=== PATIENT | male | born 1965 | race American Indian/Alaskan Native ===

== ENCOUNTER 2017-08-13 02:28 | Observation (INO) | payer MEDICAID, OTHER ==
[2017-08-13] MEDS ORDERED: Metoprolol 1 mg/ml Inj IVP STA ×3 (02:44→03:00)
--- NOTE | 2017-08-13 02:53 | ED PDOC ---
HPI: Chest Pain Time Seen by Provider: 08/13/17 02:30 Chief Complaint (Nursing): Palpitations Chief Complaint (Provider): Palpitations History Per: Patient History/Exam Limitations: no limitations Onset/Duration Of Symptoms: Sudden Onset Current Symptoms Are (Timing): Still Present Severity: Mild Quality: Other Additional Complaint(s): 52 year old male with medical history for HTN, HCL and DM, presents to the emergency department with sudden onset of palpations while at work prior to arrival. He denies any fever, chills, cough or chest pain. Patient reports feeling well prior to tonight. PMD: David Padilla MD Past Medical History Reviewed: Historical Data, Nursing Documentation, Vital Signs Vital Signs: Last Vital Signs Temp 98.8 F 08/13/17 16:34 Pulse 93 H 08/13/17 16:34 Resp 18 08/13/17 16:34 BP 117/73 08/13/17 16:34 Pulse Ox 95 08/13/17 16:34 - Medical History PMH: Anxiety, Cardia Arrhythmia, Depression, Diabetes, HTN Denies: HIV, Chronic Kidney Disease Comment Only: Cardiac Aneurysm (SVT) - Surgical History Surgical History: No Surg Hx - Family History Family History: States: Unknown Family Hx - Social History Ex-Smoker (has not smoked in the last 12 months): Yes Alcohol: None Drugs: Denies - Home Medications Home Medications: Ambulatory Orders Medication Instructions Recorded Clonazepam [Klonopin] 0.5 mg PO TID 09/11/15 Lamotrigine [Lamictal] 25 mg PO HS 09/11/15 Lisinopril/Hydrochlorothiazide 1 tab PO DAILY 09/11/15 [Lisinopril-Hctz 20-25 mg Tab] Sertraline HCl 100 mg PO DAILY 09/11/15 Simvastatin [Zocor] 40 mg PO HS 09/11/15 Sitagliptin Phos/Metformin HCl 1 each PO BID 09/11/15 [Janumet 50-1,000 mg Tablet] Aspirin [Aspirin Chewable] 81 mg PO DAILY #0 chew 09/12/15 Metoprolol Tartrate [Lopressor] 50 mg PO DAILY 08/13/17 - Allergies Allergies/Adverse Reactions: Allergies Allergy/AdvReac Type Severity Reaction Status Date / Time No Known Allergies Allergy Verified 09/11/15 20:18 KAROLINA Risk Score for UA/NSTEMI - KAROLINA Risk Score Age > 64: NO 3 or more CAD Risk Factors: NO Known CAD (Stenosis greater than 50%): NO Aspirin use in past 7 days: NO Severe Angina: NO EKG ST changes greater than 0.5mm: NO Positive Cardiac Marker: NO [place] Score: 0 Risk %: 5% Review of Systems ROS Statement: Except As Marked, All Systems Reviewed And Found Negative Constitutional: Negative for: Fever, Chills, Sweats Respiratory: Positive for: SOB with Exertion, Pleuritic Pain Physical Exam - Reviewed Nursing Documentation Reviewed: Yes Vital Signs Reviewed: Yes - Physical Exam Appears: Positive for: Non-toxic, Uncomfortable Head Exam: Positive for: ATRAUMATIC, NORMAL INSPECTION, NORMOCEPHALIC Skin: Positive for: Normal Color Eye Exam: Positive for: Normal appearance Neck: Positive for: Normal Cardiovascular/Chest: Positive for: Chest Non Tender, Tachycardia Respiratory: Positive for: Normal Breath Sounds. Negative for: Wheezing, Respiratory Distress Gastrointestinal/Abdominal: Positive for: Normal Exam, Soft. Negative for: Tenderness Extremity: Positive for: Normal ROM (upper/lower). Negative for: Pedal Edema ( bilateral) Neurologic/Psych: Positive for: Alert, Oriented. Negative for: Motor/Sensory Deficits - Laboratory Results Result Diagrams: 08/13/17 10:30 08/13/17 10:30 - ECG O2 Sat by Pulse Oximetry: 98 (RA) Pulse Ox Interpretation: Normal Medical Decision Making Medical Decision Making: Initial Impression: Palpitations rule out aberrant rythm, rule out ischemia, rule out infection Initial Plan: * CMP * Troponin I * CBC * CXR * Accucheck * Lopressor 5mg IVP Time: 0230 --EKG: SVT at 200 BMP. --Adenosine 6mg IV ordered. Brief period of AFib noted. Time: 0246 --Accucheck: 337. --once the rate slowed down, Patient is noted to have no p waves on ekg, appears to be consistent with atrial fibrillation. pt states he was once told he had an svt. i ordered cardizem however is backordered. therefore will give lopressor. Time: 413 --Labs: low potassium noted. --Patient will be admitted to Dr. Mathew for SVT and hyperglycemia. --Jc Hill APN (covering for Dr. Mathew) made aware of case. pt agreeable stay in hospital for observation on manager cardiac cath. Scribe Attestation: Documented by Cynthia Garcia, acting as a scribe for Darcy Howe MD. Provider Scribe Attestation: All medical record entries made by the Scribe were at my direction and personally dictated by me. I have reviewed the chart and agree that the record accurately reflects my personal performance of the history, physical exam, medical decision making, and the department course for this patient. I have also personally directed, reviewed, and agree with the discharge instructions and disposition. Disposition - Clinical Impression Clinical Impression: Rapid palpitations, SVT (supraventricular tachycardia) - Patient ED Disposition Is Patient to be Admitted: Yes Counseled Patient/Family Regarding: Studies Performed, Diagnosis - Disposition Disposition Time: 04:00 Condition: STABLE
[2017-08-13] MEDS ORDERED: Metoprolol 1 mg/ml Inj IVP ONE (02:55)
[2017-08-13 03:24] LABS: BASO % 0.4 % (0.0-2.0); EOS # 0.2 K/uL (0.0-0.7); EOS % 1.9 % (0.0-4.0); HEMOGLOBIN 16.1 g/dL (12.0-18.0); LYMPH # 2.7 K/uL (1.0-4.3); LYMPH % 28.3 % (20.0-40.0); MEAN CELL VOLUME 86.3 fl (80.0-94.0); MEAN CORPUSCULAR HEMOGLOBIN 29.4 pg (27.0-31.0); MEAN CORPUSCULAR HGB CONC 34.1 g/dL (33.0-37.0); MEAN PLATELET VOLUME 9.5 fl (7.2-11.7); MONO # 1.1 K/uL (0.0-0.8); MONO % 11.1 % (0.0-10.0); NEUT # 5.7 K/uL (1.8-7.0); NEUT % 58.3 % (50.0-75.0); NRBC % 0.1 % (0.0-0.0); RBC 5.48 Mil/uL (4.40-5.90); RED CELL DISTRIBUTION WIDTH 13.7 % (11.5-14.5); WHITE BLOOD COUNT 9.7 K/uL (4.8-10.8)
[2017-08-13 03:47] LABS: ALB/GLOB RATIO 1.1 (1.0-2.1); ALBUMIN 4.2 g/dL (3.5-5.0); ALT/SGPT 36 U/L (21-72); AST/SGOT 28 U/L (17-59); BLOOD UREA NITROGEN 17 mg/dl (9-20); CALCIUM 9.8 mg/dL (8.4-10.2); GFR AFRICAN-AMERICAN > 60; GFR NON-AFRICAN AMERICAN > 60
[2017-08-13] MEDS ORDERED: Insulin Regular 100 units/ml SC STA (03:48)
[2017-08-13] MEDS ORDERED: Potassium Chloride 20 mEq ER Tab PO ONE ×2 (04:14→04:51)
[2017-08-13] MEDS ORDERED: Insulin Regular 100 units/ml ONE (04:50)
--- NOTE | 2017-08-13 08:22 | CP.PCM.HP ---
History of Present Illness - History of Present Illness History of Present Illness: pt admitted for palpitations/svt. broke w/ meds in er. at presnt w/o cp, f/c, n /v/d.no palpitations. bw noted Present on Admission - Present on Admission Any Indicators Present on Admission: No Review of Systems - Cardiovascular Cardiovascular: As Per HPI, Palpitations, Rapid Heart Rate Past Patient History - Past Medical History & Family History Past Medical History?: Yes - Past Social History Smoking Status: Never Smoked - CARDIAC Hx Cardiac Disorders: Yes - PULMONARY Hx Respiratory Disorders: No - NEUROLOGICAL Hx Neurological Disorder: No - HEENT Hx HEENT Problems: No - RENAL Hx Chronic Kidney Disease: No - ENDOCRINE/METABOLIC Hx Endocrine Disorders: Yes - HEMATOLOGICAL/ONCOLOGICAL Hx Human Immunodeficiency Virus (HIV): No - INTEGUMENTARY Hx Dermatological Problems: No - MUSCULOSKELETAL/RHEUMATOLOGICAL Hx Musculoskeletal Disorders: No Hx Falls: No - GASTROINTESTINAL Hx Gastrointestinal Disorders: No - GENITOURINARY/GYNECOLOGICAL Hx Genitourinary Disorders: No - PSYCHIATRIC Hx Psychophysiologic Disorder: Yes - SURGICAL HISTORY Hx Surgeries: No - ANESTHESIA Hx Anesthesia: No Hx Anesthesia Reactions: No Hx Malignant Hyperthermia: No Meds Allergies/Adverse Reactions: Allergies Allergy/AdvReac Type Severity Reaction Status Date / Time No Known Allergies Allergy Verified 09/11/15 20:18 Physical Exam - Constitutional Appears: Well, Non-toxic, No Acute Distress - Head Exam Head Exam: ATRAUMATIC, NORMAL INSPECTION, NORMOCEPHALIC - Eye Exam Eye Exam: EOMI, Normal appearance, PERRL Pupil Exam: NORMAL ACCOMODATION, PERRL - ENT Exam ENT Exam: Mucous Membranes Moist, Normal Exam - Neck Exam Neck exam: Positive for: Normal Inspection - Respiratory Exam Respiratory Exam: Clear to Auscultation Bilateral, NORMAL BREATHING PATTERN - Cardiovascular Exam Cardiovascular Exam: REGULAR RHYTHM, RRR, +S1, +S2 - GI/Abdominal Exam GI & Abdominal Exam: Normal Bowel Sounds, Soft. absent: Tenderness - Extremities Exam Extremities exam: Positive for: full ROM, normal capillary refill, normal inspection, pedal pulses present - Back Exam Back exam: NORMAL INSPECTION - Neurological Exam Neurological exam: Alert, CN II-XII Intact, Normal Gait, Oriented x3, Reflexes Normal - Psychiatric Exam Psychiatric exam: Normal Affect, Normal Mood - Skin Skin Exam: Dry, Intact, Normal Color, Warm Results - Vital Signs Recent Vital Signs: Last Vital Signs Temp 98.7 F 08/13/17 06:49 Pulse 104 H 08/13/17 06:49 Resp 18 08/13/17 06:49 BP 141/83 08/13/17 06:49 Pulse Ox 97 08/13/17 06:49 - Labs Result Diagrams: 08/13/17 03:00 08/13/17 03:00 Labs: Laboratory Results - last 24 hr 08/13/17 08/13/17 08/13/17 02:37 03:00 03:00 WBC 9.7 RBC 5.48 Hgb 16.1 Hct 47.3 MCV 86.3 MCH 29.4 MCHC 34.1 RDW 13.7 Plt Count 256 MPV 9.5 Neut % (Auto) 58.3 Lymph % (Auto) 28.3 [place] % (Auto) 11.1 H Eos % (Auto) 1.9 Baso % (Auto) 0.4 Neut # (Auto) 5.7 Lymph # (Auto) 2.7 [place] # (Auto) 1.1 H Eos # (Auto) 0.2 Baso # (Auto) 0.0 Sodium 136 Potassium 3.0 L Chloride 97 L Carbon Dioxide 24 Anion Gap 18 BUN 17 Creatinine 1.0 Est GFR ( Amer) > 60 Est GFR (Non-Af Amer) > 60 POC Glucose (mg/dL) 337 H Random Glucose 344 H Calcium 9.8 Total Bilirubin 0.7 AST 28 ALT 36 Alkaline Phosphatase 147 H Troponin I < 0.0120 Total Protein 8.1 Albumin 4.2 Globulin 3.8 Albumin/Globulin Ratio 1.1 08/13/17 05:37 WBC RBC Hgb Hct MCV MCH MCHC RDW Plt Count MPV Neut % (Auto) Lymph % (Auto) [place] % (Auto) Eos % (Auto) Baso % (Auto) Neut # (Auto) Lymph # (Auto) [place] # (Auto) Eos # (Auto) Baso # (Auto) Sodium Potassium Chloride Carbon Dioxide Anion Gap BUN Creatinine Est GFR ( Amer) Est GFR (Non-Af Amer) POC Glucose (mg/dL) 294 H Random Glucose Calcium Total Bilirubin AST ALT Alkaline Phosphatase Troponin I Total Protein Albumin Globulin Albumin/Globulin Ratio Assessment & Plan (1) DVT prophylaxis Assessment and Plan: scd nad ae hose ambulation Status: Acute (2) HTN (hypertension) Assessment and Plan: cont home meds Status: Acute (3) Palpitations Assessment and Plan: cardio echo asa cont home meds Status: Acute (4) SVT (supraventricular tachycardia) Assessment and Plan: cardio echo cont home meds Status: Acute (5) Type 2 diabetes mellitus with hyperglycemia Assessment and Plan: riss, home meds, diet control fsbg Status: Acute Decision To Admit - Pt Status Changed To: Hospital Disposition Of: Observation - . Bed Request Type: Telemetry Admitting Physician: Harry Mathew
--- NOTE | 2017-08-13 08:45 | RAD ---
HISTORY: chest pain COMPARISON: Chest radiograph 12/04/2015. FINDINGS: LUNGS: No active pulmonary disease. PLEURA: No significant pleural effusion identified, no pneumothorax apparent. CARDIOVASCULAR: Normal. OSSEOUS STRUCTURES: No significant abnormalities. VISUALIZED UPPER ABDOMEN: Normal. OTHER FINDINGS: None. IMPRESSION: No interval acute cardiopulmonary disease appreciated.
[2017-08-13 11:05] LABS: BASO % 0.5 % (0.0-2.0); EOS # 0.1 K/uL (0.0-0.7); EOS % 1.2 % (0.0-4.0); HEMOGLOBIN 15.4 g/dL (12.0-18.0); LYMPH # 1.3 K/uL (1.0-4.3); LYMPH % 19.4 % (20.0-40.0); MEAN CELL VOLUME 86.8 fl (80.0-94.0); MEAN CORPUSCULAR HEMOGLOBIN 28.9 pg (27.0-31.0); MEAN CORPUSCULAR HGB CONC 33.3 g/dL (33.0-37.0); MEAN PLATELET VOLUME 9.5 fl (7.2-11.7); MONO # 0.6 K/uL (0.0-0.8); MONO % 9.5 % (0.0-10.0); NEUT # 4.7 K/uL (1.8-7.0); NEUT % 69.4 % (50.0-75.0); NRBC % 0.1 % (0.0-0.0); RBC 5.32 Mil/uL (4.40-5.90); RED CELL DISTRIBUTION WIDTH 13.6 % (11.5-14.5); WHITE BLOOD COUNT 6.7 K/uL (4.8-10.8)
[2017-08-13] MEDS: Insulin Regular 100 units/ml SC SCH ×2 (11:09→16:42)
[2017-08-13 11:20] LABS: ALB/GLOB RATIO 1.1 (1.0-2.1); ALT/SGPT 45 U/L (21-72); AST/SGOT 23 U/L (17-59); BLOOD UREA NITROGEN 14 mg/dl (9-20); CALCIUM 9.4 mg/dL (8.4-10.2); GFR AFRICAN-AMERICAN > 60; GFR NON-AFRICAN AMERICAN > 60
[2017-08-13 16:27] VITALS: BP 117/73; PULSE 93; RESP 18; TEMP 98.8
--- NOTE | 2017-08-13 18:36 | CP.PCM.DIS ---
Provider - Provider Date of Admission: 08/13/17 04:15 Attending physician: Harry Mathew MD Primary care physician: David Padilla Time Spent in preparation of Discharge (in minutes): 15 Diagnosis - Discharge Diagnosis (1) DVT prophylaxis Status: Acute (2) HTN (hypertension) Status: Acute (3) Palpitations Status: Acute (4) SVT (supraventricular tachycardia) Status: Acute (5) Type 2 diabetes mellitus with hyperglycemia Status: Acute Hospital Course - Lab Results Lab Results: Most Recent Lab Values WBC 6.7 K/uL (4.8-10.8) 08/13/17 10:30 RBC 5.32 Mil/uL (4.40-5.90) 08/13/17 10:30 Hgb 15.4 g/dL (12.0-18.0) 08/13/17 10:30 Hct 46.2 % (35.0-51.0) 08/13/17 10:30 MCV 86.8 fl (80.0-94.0) 08/13/17 10:30 MCH 28.9 pg (27.0-31.0) 08/13/17 10:30 MCHC 33.3 g/dL (33.0-37.0) 08/13/17 10:30 RDW 13.6 % (11.5-14.5) 08/13/17 10:30 Plt Count 222 K/uL (130-400) 08/13/17 10:30 MPV 9.5 fl (7.2-11.7) 08/13/17 10:30 Neut % (Auto) 69.4 % (50.0-75.0) 08/13/17 10:30 Lymph % (Auto) 19.4 % (20.0-40.0) L 08/13/17 10:30 [place] % (Auto) 9.5 % (0.0-10.0) 08/13/17 10:30 Eos % (Auto) 1.2 % (0.0-4.0) 08/13/17 10:30 Baso % (Auto) 0.5 % (0.0-2.0) 08/13/17 10:30 Neut # (Auto) 4.7 K/uL (1.8-7.0) 05/07/18 10:30 Lymph # (Auto) 1.3 K/uL (1.0-4.3) 08/13/17 10:30 [place] # (Auto) 0.6 K/uL (0.0-0.8) 08/13/17 10:30 Eos # (Auto) 0.1 K/uL (0.0-0.7) 08/13/17 10:30 Baso # (Auto) 0.0 K/uL (0.0-0.2) 08/13/17 10:30 Sodium 136 mmol/l (132-148) 08/13/17 10:30 Potassium 3.8 MMOL/L (3.6-5.0) 08/13/17 10:30 Chloride 98 mmol/L (98-107) 08/13/17 10:30 Carbon Dioxide 24 mmol/L (22-30) 08/13/17 10:30 Anion Gap 18 (10-20) 08/13/17 10:30 BUN 14 mg/dl (9-20) 08/13/17 10:30 Creatinine 0.7 mg/dl (0.8-1.5) L 08/13/17 10:30 Est GFR ( Amer) > 60 08/13/17 10:30 Est GFR (Non-Af Amer) > 60 08/13/17 10:30 POC Glucose (mg/dL) 241 mg/dL (65-110) H 08/13/17 16:04 Random Glucose 382 mg/dL (75-110) H 08/13/17 10:30 Calcium 9.4 mg/dL (8.4-10.2) 08/13/17 10:30 Total Bilirubin 0.7 mg/dl (0.2-1.3) 08/13/17 10:30 AST 23 U/L (17-59) 08/13/17 10:30 ALT 45 U/L (21-72) 08/13/17 10:30 Alkaline Phosphatase 122 U/L (38-126) 08/13/17 10:30 Troponin I 0.0270 ng/mL (0.00-0.120) 08/13/17 10:30 Total Protein 7.7 G/DL (6.3-8.2) 08/13/17 10:30 Albumin 4.0 g/dL (3.5-5.0) 08/13/17 10:30 Globulin 3.6 gm/dL (2.2-3.9) 08/13/17 10:30 Albumin/Globulin Ratio 1.1 (1.0-2.1) 08/13/17 10:30 - Hospital Course Hospital Course: cardio, echo monitor on tele Discharge Exam - Head Exam Head Exam: ATRAUMATIC, NORMAL INSPECTION, NORMOCEPHALIC Discharge Plan - Follow Up Plan Condition: GOOD Disposition: HOME/ ROUTINE Instructions: Supraventricular Tachycardia (SVT) Additional Instructions: final dx-svt, palpitations cleared by cardio f/u rmg in am rted prn, meds pe rmed rec FOLLOW UP WITH PMD IN 2-3 DAYS FOLLOW UP WITH IN 1 WEEK Referrals: David Padilla MD [Primary Care Provider] - Ronaldo Wheeler MD [Staff Provider] -
--- NOTE | 2017-08-13 19:35 | CP.PCM.CON ---
Past Patient History - Past Medical History & Family History Past Medical History?: Yes - Past Social History Smoking Status: Never Smoked - CARDIAC Hx Cardiac Disorders: Yes - PULMONARY Hx Respiratory Disorders: No - NEUROLOGICAL Hx Neurological Disorder: No - HEENT Hx HEENT Problems: No - RENAL Hx Chronic Kidney Disease: No - ENDOCRINE/METABOLIC Hx Endocrine Disorders: Yes - HEMATOLOGICAL/ONCOLOGICAL Hx Human Immunodeficiency Virus (HIV): No - INTEGUMENTARY Hx Dermatological Problems: No - MUSCULOSKELETAL/RHEUMATOLOGICAL Hx Musculoskeletal Disorders: No Hx Falls: No - GASTROINTESTINAL Hx Gastrointestinal Disorders: No - GENITOURINARY/GYNECOLOGICAL Hx Genitourinary Disorders: No - PSYCHIATRIC Hx Psychophysiologic Disorder: Yes - SURGICAL HISTORY Hx Surgeries: No - ANESTHESIA Hx Anesthesia: No Hx Anesthesia Reactions: No Hx Malignant Hyperthermia: No Meds Allergies/Adverse Reactions: Allergies Allergy/AdvReac Type Severity Reaction Status Date / Time No Known Allergies Allergy Verified 09/11/15 20:18 Results - Vital Signs Recent Vital Signs: Last Vital Signs Temp 98.8 F 08/13/17 16:34 Pulse 93 H 08/13/17 16:34 Resp 18 08/13/17 16:34 BP 117/73 08/13/17 16:34 Pulse Ox 95 08/13/17 16:34 - Labs Result Diagrams: 08/13/17 10:30 08/13/17 10:30 Labs: Laboratory Results - last 24 hr 08/13/17 08/13/17 08/13/17 02:37 03:00 03:00 WBC 9.7 RBC 5.48 Hgb 16.1 Hct 47.3 MCV 86.3 MCH 29.4 MCHC 34.1 RDW 13.7 Plt Count 256 MPV 9.5 Neut % (Auto) 58.3 Lymph % (Auto) 28.3 [place] % (Auto) 11.1 H Eos % (Auto) 1.9 Baso % (Auto) 0.4 Neut # (Auto) 5.7 Lymph # (Auto) 2.7 [place] # (Auto) 1.1 H Eos # (Auto) 0.2 Baso # (Auto) 0.0 Sodium 136 Potassium 3.0 L Chloride 97 L Carbon Dioxide 24 Anion Gap 18 BUN 17 Creatinine 1.0 Est GFR ( Amer) > 60 Est GFR (Non-Af Amer) > 60 POC Glucose (mg/dL) 337 H Random Glucose 344 H Calcium 9.8 Total Bilirubin 0.7 AST 28 ALT 36 Alkaline Phosphatase 147 H Troponin I < 0.0120 Total Protein 8.1 Albumin 4.2 Globulin 3.8 Albumin/Globulin Ratio 1.1 08/13/17 08/13/17 08/13/17 05:37 10:30 10:30 WBC 6.7 RBC 5.32 Hgb 15.4 Hct 46.2 MCV 86.8 MCH 28.9 MCHC 33.3 RDW 13.6 Plt Count 222 MPV 9.5 Neut % (Auto) 69.4 Lymph % (Auto) 19.4 L [place] % (Auto) 9.5 Eos % (Auto) 1.2 Baso % (Auto) 0.5 Neut # (Auto) 4.7 Lymph # (Auto) 1.3 [place] # (Auto) 0.6 Eos # (Auto) 0.1 Baso # (Auto) 0.0 Sodium 136 Potassium 3.8 Chloride 98 Carbon Dioxide 24 Anion Gap 18 BUN 14 Creatinine 0.7 L Est GFR ( Amer) > 60 Est GFR (Non-Af Amer) > 60 POC Glucose (mg/dL) 294 H Random Glucose 382 H Calcium 9.4 Total Bilirubin 0.7 AST 23 ALT 45 Alkaline Phosphatase 122 Troponin I 0.0270 Total Protein 7.7 Albumin 4.0 Globulin 3.6 Albumin/Globulin Ratio 1.1 08/13/17 08/13/17 10:55 16:04 WBC RBC Hgb Hct MCV MCH MCHC RDW Plt Count MPV Neut % (Auto) Lymph % (Auto) [place] % (Auto) Eos % (Auto) Baso % (Auto) Neut # (Auto) Lymph # (Auto) [place] # (Auto) Eos # (Auto) Baso # (Auto) Sodium Potassium Chloride Carbon Dioxide Anion Gap BUN Creatinine Est GFR ( Amer) Est GFR (Non-Af Amer) POC Glucose (mg/dL) 339 H 241 H Random Glucose Calcium Total Bilirubin AST ALT Alkaline Phosphatase Troponin I Total Protein Albumin Globulin Albumin/Globulin Ratio
[2017-08-14 05:30] VITALS: O2SAT 98
--- NOTE | 2017-08-15 10:06 | CARD ---
APPROVED REPORT EXAM: Two-dimensional and M-mode echocardiogram with Doppler and color Doppler. Other Information Quality : GoodRhythm : NSR INDICATION Abnormal EKG/Arrhythmia 2D DIMENSIONS IVSd1.27 (0.7-1.1cm)LVDd3.96 (3.9-5.9cm) LVOT Diameter2.03 (1.8-2.4cm)PWd1.04 (0.7-1.1cm) IVSs1.55 (0.8-1.2cm)LVDs2.33 (2.5-4.0cm) FS (%) 41.3 %PWs1.66 (0.8-1.2cm) M-Mode DIMENSIONS Left Atrium (MM)3.14 (2.5-4.0cm)IVSd0.99 (0.7-1.1cm) Aortic Root3.14 (2.2-3.7cm)LVDd4.19 (4.0-5.6cm) Aortic Cusp Exc.2.12 (1.5-2.0cm)PWd1.16 (0.7-1.1cm) IVSs1.76 cmFS (%) 52 % LVDs2.01 (2.0-3.8cm)PWs1.93 cm Mitral Valve MV E Zkvvefoa57.2cm/sMV DECEL [id number] A Tmcbvllj98.9cm/s MV IHQ69rbY/A ratio0.6MVA (PHT)6.42cm2 TDI Lateral E' Peak V8.96cm/sMedial E' Peak V5.87cm/sE/Lateral E'5.2 E/Medial E'7.9 Pulmonary Valve PV Peak Yjynzoze41.0cm/s LEFT VENTRICLE The left ventricle is normal size. There is normal left ventricular wall thickness. The left ventricular function is normal. The left ventricular ejection fraction is 60% There is normal LV segmental wall motion. The left ventricular diastolic function is normal. No left ventricle thrombus noted on this study. There is no ventricular septal defect visualized. There is no left ventricular aneurysm. There is no mass noted in the left ventricle. RIGHT VENTRICLE The right ventricle is normal size. There is normal right ventricular wall thickness. The right ventricular systolic function is normal. ATRIA The left atrium size is normal. The right atrium size is normal. The interatrial septum is intact with no evidence for an atrial septal defect. AORTIC VALVE The aortic valve is normal in structure. No aortic regurgitation is present. There is no aortic valvular stenosis. There is no aortic valvular vegetation. MITRAL VALVE The mitral valve is normal in structure. There is no evidence of mitral valve prolapse. There is no mitral valve stenosis. There is no mitral valve regurgitation noted. TRICUSPID VALVE The tricuspid valve is normal in structure. There is no tricuspid valve regurgitation noted. There is no tricuspid valve prolapse or vegetation. There is no tricuspid valve stenosis. PULMONIC VALVE The pulmonary valve is normal in structure. There is no pulmonic valvular regurgitation. There is no pulmonic valvular stenosis. GREAT VESSELS The aortic root is normal in size. The ascending aorta is normal in size. The IVC is normal in size and collapses >50% with inspiration. PERICARDIAL EFFUSION The pericardium appears normal. There is no pleural effusion. <Conclusion> Normal Echocardiogram
== END 2017-08-13 17:30 | disposition home or self-care (01) ==
LOC: H.ER 02:28 → H.ERHOLD 04:15 → H.TEL 06:22
PROVIDERS: ADMIT Family Medicine; ATTEND Family Medicine
DX: I47.1 Supraventricular tachycardia (principal); E11.65 Type 2 diabetes mellitus with hyperglycemia; I10 Essential (primary) hypertension; F41.9 Anxiety disorder, unspecified; Z87.891 Personal history of nicotine dependence
CPT/HCPCS: 71045; 80053; 82948; 84484; 85025; 93306; 96374; 96375; 99285; G0378; J0153

== ENCOUNTER 2017-10-22 06:23 | Observation (INO) | payer OTHER ==
[2017-10-22 06:42] VITALS: BMI 38.3
[2017-10-22] MEDS ORDERED: Sodium Chloride 0.9% 1,000 ML IV STA (06:42)
--- NOTE | 2017-10-22 06:43 | ED PDOC ---
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 Patient states he was working during onset of symptoms; denies any chest pain, nausea, vomiting, or diaphoresis. Patient states he is currently on metroprolol, which he has been taking as prescribed. He reports the symptoms today are consistent with previous episodes of SVT. Otherwise, he offers no other medical complaints. PMD: [facility] Past Medical History Reviewed: Historical Data, Nursing Documentation, Vital Signs Vital Signs: Last Vital Signs Temp 98.5 F 10/23/17 05:02 Pulse 80 10/23/17 05:02 Resp 18 10/23/17 05:02 BP 130/79 10/23/17 05:02 Pulse Ox 93 L 10/23/17 05:02 - Medical History PMH: Anxiety, Cardia Arrhythmia, Depression, Diabetes, HTN, Hypercholesterolemia Denies: HIV, Chronic Kidney Disease Comment Only: Cardiac Aneurysm (SVT) - Surgical History Surgical History: No Surg Hx - Family History Family History: States: No Known Family Hx, Unknown Family Hx - Social History Current smoker - smoking cessation education provided: No Ex-Smoker (has not smoked in the last 12 months): No Alcohol: None Drugs: Denies - Home Medications Home Medications: Ambulatory Orders Medication Instructions Recorded Clonazepam [Klonopin] 0.5 mg PO TID 09/11/15 Lamotrigine [Lamictal] 25 mg PO HS 09/11/15 Lisinopril/Hydrochlorothiazide 1 tab PO DAILY 09/11/15 [Lisinopril-Hctz 20-25 mg Tab] Simvastatin [Zocor] 40 mg PO HS 09/11/15 Sitagliptin Phos/Metformin HCl 1 each PO BID 09/11/15 [Janumet 50-1,000 mg Tablet] Aspirin [Aspirin Chewable] 81 mg PO DAILY #0 chew 09/12/15 Metoprolol Tartrate [Lopressor] 50 mg PO DAILY 08/13/17 - Allergies Allergies/Adverse Reactions: Allergies Allergy/AdvReac Type Severity Reaction Status Date / Time No Known Allergies Allergy Verified 10/22/17 06:39 Review of Systems ROS Statement: Except As Marked, All Systems Reviewed And Found Negative Constitutional: Negative for: Fever, Chills, Sweats Cardiovascular: Positive for: Palpitations. Negative for: Chest Pain Respiratory: Positive for: Shortness of Breath Gastrointestinal: Negative for: Nausea, Abdominal Pain Neurological: Negative for: Weakness, Numbness Physical Exam - Reviewed Nursing Documentation Reviewed: Yes Vital Signs Reviewed: Yes - Physical Exam Appears: Positive for: Non-toxic, Uncomfortable (+ anxious appearing) Head Exam: Positive for: ATRAUMATIC, NORMAL INSPECTION, NORMOCEPHALIC Skin: Positive for: Normal Color Eye Exam: Positive for: Normal appearance Neck: Positive for: Normal, Supple Cardiovascular/Chest: Positive for: Tachycardia, Irregularly Irregular Respiratory: Positive for: Normal Breath Sounds. Negative for: Rales, Rhonchi, Wheezing Gastrointestinal/Abdominal: Positive for: Normal Exam, Soft. Negative for: Tenderness Back: Positive for: Normal Inspection Extremity: Positive for: Normal ROM. Negative for: Pedal Edema, Deformity Neurologic/Psych: Positive for: Alert, Oriented. 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 Patient reports improvement in symptoms. Plan: -- Labs -- Chest x-ray -- IV Fluids Time: 0640 Repeat EKG: Sinus tachycardia Rate: 107 BPM Time: 0700 Patient signed out to Dr. Ruano pending labs, chest x-ray and re-evaluation. Scribe Attestation: Documented by Lise Sheets, acting as a scribe for Howard Brown MD. Provider Scribe Attestation: All medical record entries made by the Scribe were at my direction and personally dictated by me. I have reviewed the chart and agree that the record accurately reflects my personal performance of the history, physical exam, medical decision making, and the department course for this patient. I have also personally directed, reviewed, and agree with the discharge instructions and disposition. Disposition - Clinical Impression Clinical Impression: SVT (supraventricular tachycardia) - Patient ED Disposition Is Patient to be Admitted: Transfer of Care - Disposition Disposition: Transfer of Care Disposition Time: 07:00 Condition: FAIR Patient Signed Over To: Rajendra Ruano
--- NOTE | 2017-10-22 07:20 | ED PDOC ---
- ECG O2 Sat by Pulse Oximetry: 100 Medical Decision Making Medical Decision Making: Time: 07:00 --Patient care endorsed to Dr. Ruano from Dr. Brown pending labs, chest x-ray , and reevaluation. Disposition - Clinical Impression Clinical Impression: SVT (supraventricular tachycardia) - POA Present On Arrival: None - Disposition Disposition: Hospitalized as Observation Patient Disposition Time: 07:43 Condition: FAIR Forms: [employer] (Portuguese)
[2017-10-22 07:51] LABS: BASO % 0.5 % (0.0-2.0); EOS # 0.1 K/uL (0.0-0.7); EOS % 1.6 % (0.0-4.0); LYMPH # 2.5 K/uL (1.0-4.3); LYMPH % 34.2 % (20.0-40.0); MEAN CELL VOLUME 85.4 fl (80.0-94.0); MEAN CORPUSCULAR HEMOGLOBIN 29.2 pg (27.0-31.0); MEAN CORPUSCULAR HGB CONC 34.2 g/dL (33.0-37.0); MEAN PLATELET VOLUME 9.2 fl (7.2-11.7); MONO # 1.3 K/uL (0.0-0.8); MONO % 17.9 % (0.0-10.0); NEUT # 3.3 K/uL (1.8-7.0); NEUT % 45.8 % (50.0-75.0); NRBC % 0.2 % (0.0-0.0); RBC 5.5 Mil/uL (4.40-5.90); RED CELL DISTRIBUTION WIDTH 13.8 % (11.5-14.5); WHITE BLOOD COUNT 7.2 K/uL (4.8-10.8)
[2017-10-22 07:59] LABS: INR 1.1 (0.9-1.2); PARTIAL THROMBOPLASTIN TIME 32.2 Seconds (25.6-37.1); PROTHROMBIN TIME 12.6 Seconds (9.8-13.1)
[2017-10-22 08:01] LABS: ALB/GLOB RATIO 1.3 (1.0-2.1); ALBUMIN 4.7 g/dL (3.5-5.0); ALT/SGPT 49 U/L (21-72); AST/SGOT 47 U/L (17-59); BLOOD UREA NITROGEN 14 mg/dl (9-20); CALCIUM 9.5 mg/dL (8.4-10.2); GFR AFRICAN-AMERICAN > 60; GFR NON-AFRICAN AMERICAN > 60
--- NOTE | 2017-10-22 08:29 | RAD ---
Date of service: 10/22/2017 HISTORY: Chest pain COMPARISON: 08/13/2017. FINDINGS: LUNGS: The lungs are well inflated and clear. PLEURA: No significant pleural effusion identified, no pneumothorax apparent. CARDIOVASCULAR: Normal. OSSEOUS STRUCTURES: No significant abnormalities. VISUALIZED UPPER ABDOMEN: Normal. OTHER FINDINGS: None. IMPRESSION: No active pulmonary disease.
[2017-10-22] MEDS ORDERED: Patient's Own Med (Sitagliptin Phos/Metformin Hcl [Janumet 50-1,000 Mg Tablet] 1 EACH) PO SCH (09:00)
--- NOTE | 2017-10-22 09:55 | CARD ---
APPROVED REPORT Date of service: 10/22/2017 EKG Measurement Heart [id number] <Conclusion> Sinus tachycardia with 1st degree AV block Nonspecific T wave abnormality Abnormal ECG
[2017-10-22] MEDS ORDERED: Patient's Own Med (Lisinopril/Hydrochlorothiazide [Lisinopril-Hctz 20-25 Mg Tab] 1 TAB) PO SCH (11:30)
[2017-10-22 17:18] LABS: TROPONIN I 0.055 ng/mL (0.00-0.120)
--- NOTE | 2017-10-22 18:36 | CP.PCM.CON ---
History of Present Illness - History of Present Illness History of Present Illness: I was asked to evaluate patient for complainst of palpitaitons. Patient is a 52 year old male with PMH HTN SVT who presents with palpitiatons. The patient felt rapid heart rate and was found to be in SVT reportedly at a rate of 200. The patient was dyspneic. he got adenosine. He is currently in sinus rhythm Review of Systems - Constitutional Constitutional: absent: As Per HPI, Anorexia, Chills, Daytime Sleepiness, Excessive Sweating, Fatigue, Fever, Frequent Falls, Headache, Increased Appetite , Lethargy, Malaise, Night Sweats, Snoring, Sleep Apnea, Weight Gain, Weight Loss, Weakness, Other - EENT Eyes: absent: As Per HPI, Blind Spots, Blurred Vision, Change in Vision, Decreased Night Vision, Diplopia, Discharge, Dry Eye, Exophthalmos, Floaters, Irritation, Itchy Eyes, Loss of Peripheral Vision, Pain, Photophobia, Requires Corrective Lenses, Sees Flashes, Spots in Vision, Tunnel Vision, Other Visual Disturbances, Loss of Vision, Other Ears: absent: As Per HPI, Decreased Hearing, Ear Discharge, Ear Pain, Tinnitus, Abnormal Hearing, Disequilibrium, Dizziness, Other Nose/Mouth/Throat: absent: As Per HPI, Epistaxis, Nasal Congestion, Nasal Discharge, Nasal Obstruction, Nasal Trauma, Nose Pain, Post Nasal Drip, Sinus Pain, Sinus Pressure, Bleeding Gums, Change in Voice, Dental Pain, Dry Mouth, Dysphagia, Halitosis, Hoarsness, Lip Swelling, Mouth Lesions, Mouth Pain, Odynophagia, Sore Throat, Throat Swelling, Tongue Swelling, Facial Pain, Neck Pain, Neck Mass, Other - Cardiovascular Cardiovascular: Rapid Heart Rate - Respiratory Respiratory: absent: As Per HPI, Cough, Dyspnea, Hemoptysis, Dyspnea on Exertion , Wheezing, Snoring, Stridor, Pain on Inspiration, Chest Congestion, Excessive Mucous Production, Change in Mucous Color, Pain with Coughing, Other - Gastrointestinal Gastrointestinal: absent: As Per HPI, Abdominal Pain, Belching, Bloating, Change in Bowel Habits, Change in Stool Character, Coffee Ground Emesis, Constipation, Cramping, Diarrhea, Dyspepsia, Dysphagia, Early Satiety, Excessive Flatus, Fecal Incontinence, Heartburn, Hematemesis, Hematochezia, Loose Stools, Melena, Nausea, Odynophagia, Temesmus, Vomiting, Other - Genitourinary Genitourinary: absent: As Per HPI, Change in Urinary Stream, Difficulty Urinating, Dysuria, Flank Pain, Hematuria, Pyuria, Nocturia, Urinary Incontinence, Urinary Frequency, Urinary Hesitance, Urinary Urgency, Voiding Freq/Small Amts, Freq UTI, Hx Renal/Bladder Calculi, Hx /Renal Surgery, Bladder Distension, Other - Musculoskeletal Musculoskeletal: absent: As Per HPI, Abnormal Gait, Arthralgias, Atrophy, Back Pain, Deformity, Joint Swelling, Limited Range of Motion, Loss of Height, Muscle Cramps, Muscle Weakness, Myalgias, Neck Pain, Numbness, Radiating Pain into Limb, Stiffness, Tingling, Other - Integumentary Integumentary: absent: As Per HPI, Acne, Alopecia, Bleeding Lesions, Change in Hair, Change in Nails, Change in Pigmentation, Changing Lesions, Dry Skin, Erythema, Furuncle, Hirsutism, Lesions, New Lesions, Non-Healing Lesions, Photosensitivity, Pruritus, Rash, Skin Pain, Skin Ulcer, Sores, Striae, Swelling , Unusual Bruising, Wounds, Jaundice, Other - Neurological Neurological: absent: As Per HPI, Abnormal Gait, Abnormal Hearing, Abnormal Movements, Abnormal Speech, Behavioral Changes, Burning Sensations, Confusion, Convulsions, Disequilibrium, Dizziness, Numbness, Focal Weakness, Frequent Falls , Headaches, Lack of Coordination, Loss of Vision, Memory Loss, Paresthesias, Radicular Pain, Restless Legs, Sensory Deficit, Syncope, Tingling, Tremor, Vertigo, Weakness, Other Visual Disturbances, Other - Psychiatric Psychiatric: absent: As Per HPI, Abnormal Sleep Pattern, Anhedonia, Anxiety, Auditory Hallucinations, Behavioral Changes, Change in Appetite, Change in Libido, Confusion, Depression, Difficulty Concentrating, Hallucinations, Homicidal Ideation, Hopelessness, Irritability, Memory Loss, Mood Swings, Panic Attacks, Paranoia, Suicidal Ideation, Visual Hallucinations, Tactile Hallucinations, Other - Endocrine Endocrine: absent: As Per HPI, Change in Body Appearance, Change in Libido, Cold Intolorance, Deepening of Voice, Excessive Sweating, Fatigue, Flushing, Heat Intolorance, Increase in Ring/Shoe/Hat Size, Palpitations, Polydipsia, Polyphagia, Polyuria, Other - Hematologic/Lymphatic Hematologic: absent: As Per HPI, Easy Bleeding, Easy Bruising, Lymphadenopathy, Other Past Patient History - Past Medical History & Family History Past Medical History?: Yes - Past Social History Smoking Status: Never Smoked - CARDIAC Hx Cardiac Disorders: Yes Hx Hypertension: Yes Other/Comment: SVT - PULMONARY Hx Respiratory Disorders: No - NEUROLOGICAL Hx Neurological Disorder: No - HEENT Hx HEENT Problems: No - RENAL Hx Chronic Kidney Disease: No - ENDOCRINE/METABOLIC Hx Endocrine Disorders: Yes Hx Diabetes Mellitus Type 2: Yes - HEMATOLOGICAL/ONCOLOGICAL Hx Blood Disorders: No Hx AIDS: No Hx Human Immunodeficiency Virus (HIV): No - INTEGUMENTARY Hx Dermatological Problems: No - MUSCULOSKELETAL/RHEUMATOLOGICAL Hx Musculoskeletal Disorders: No Hx Falls: No - GASTROINTESTINAL Hx Gastrointestinal Disorders: No - GENITOURINARY/GYNECOLOGICAL Hx Genitourinary Disorders: No - PSYCHIATRIC Hx Psychophysiologic Disorder: Yes (Anxiety) Hx Depression: Yes Hx Substance Use: No - SURGICAL HISTORY Hx Surgeries: No - ANESTHESIA Hx Anesthesia: No Hx Anesthesia Reactions: No Hx Malignant Hyperthermia: No Meds Allergies/Adverse Reactions: Allergies Allergy/AdvReac Type Severity Reaction Status Date / Time No Known Allergies Allergy Verified 10/22/17 06:39 - Medications Medications: Current Medications Aspirin (Aspirin Chewable) 81 mg PO DAILY [facility] Last Admin: 10/22/17 10:04 Dose: 81 mg Atorvastatin Calcium (Lipitor) 20 mg PO HS [facility] Clonazepam (Klonopin) 0.5 mg PO TID [facility] Last Admin: 10/22/17 17:23 Dose: 0.5 mg Hydrochlorothiazide (Hydrodiuril) 25 mg PO DAILY [facility] Lamotrigine (Lamictal) 25 mg PO HS [facility] Lisinopril (Zestril) 20 mg PO DAILY [facility] Metformin HCl (Glucophage) 1,000 mg PO BID [facility] Last Admin: 10/22/17 17:21 Dose: 1,000 mg Metoprolol Tartrate (Lopressor) 50 mg PO DAILY [facility] Last Admin: 10/22/17 12:38 Dose: 50 mg Sitagliptin Phosphate (Januvia) 50 mg PO BID [facility] Last Admin: 10/22/17 17:21 Dose: 50 mg Physical Exam - Constitutional Appears: Non-toxic - Head Exam Head Exam: NORMAL INSPECTION - ENT Exam ENT Exam: Mucous Membranes Moist - Neck Exam Neck exam: Positive for: Full Rom, Normal Inspection - Respiratory Exam Respiratory Exam: NORMAL BREATHING PATTERN - Cardiovascular Exam Cardiovascular Exam: REGULAR RHYTHM - GI/Abdominal Exam GI & Abdominal Exam: Normal Bowel Sounds - Rectal Exam Rectal Exam: Deferred - Extremities Exam Extremities exam: Positive for: normal inspection - Back Exam Back exam: NORMAL INSPECTION - Neurological Exam Neurological exam: Alert, Oriented x3 - Psychiatric Exam Psychiatric exam: Normal Affect - Skin Skin Exam: Normal Color Results - Vital Signs Recent Vital Signs: Last Vital Signs Temp 98.5 F 10/22/17 17:00 Pulse 76 10/22/17 17:00 Resp 20 10/22/17 17:00 BP 112/78 10/22/17 17:00 Pulse Ox 95 10/22/17 17:00 - Labs Result Diagrams: 10/22/17 07:36 10/22/17 07:36 Labs: Laboratory Results - last 24 hr 10/22/17 10/22/17 10/22/17 06:37 07:36 07:36 WBC 7.2 RBC 5.50 Hgb 16.0 Hct 47.0 MCV 85.4 MCH 29.2 MCHC 34.2 RDW 13.8 Plt Count 237 MPV 9.2 Neut % (Auto) 45.8 L Lymph % (Auto) 34.2 [place] % (Auto) 17.9 H Eos % (Auto) 1.6 Baso % (Auto) 0.5 Neut # (Auto) 3.3 Lymph # (Auto) 2.5 [place] # (Auto) 1.3 H Eos # (Auto) 0.1 Baso # (Auto) 0.0 PT INR APTT Sodium 144 Potassium 4.1 Chloride 104 Carbon Dioxide 24 Anion Gap 20 BUN 14 Creatinine 1.1 Est GFR ( Amer) > 60 Est GFR (Non-Af Amer) > 60 POC Glucose (mg/dL) 186 H Random Glucose 187 H Calcium 9.5 Total Bilirubin 0.9 AST 47 ALT 49 Alkaline Phosphatase 113 Troponin I < 0.0120 Total Protein 8.3 H Albumin 4.7 Globulin 3.6 Albumin/Globulin Ratio 1.3 TSH 3rd Generation 10/22/17 10/22/17 10/22/17 07:36 12:02 15:48 WBC RBC Hgb Hct MCV MCH MCHC RDW Plt Count MPV Neut % (Auto) Lymph % (Auto) [place] % (Auto) Eos % (Auto) Baso % (Auto) Neut # (Auto) Lymph # (Auto) [place] # (Auto) Eos # (Auto) Baso # (Auto) PT 12.6 INR 1.1 APTT 32.2 Sodium Potassium Chloride Carbon Dioxide Anion Gap BUN Creatinine Est GFR ( Amer) Est GFR (Non-Af Amer) POC Glucose (mg/dL) 94 Random Glucose Calcium Total Bilirubin AST ALT Alkaline Phosphatase Troponin I 0.0550 Total Protein Albumin Globulin Albumin/Globulin Ratio TSH 3rd Generation 1.94 10/22/17 16:41 WBC RBC Hgb Hct MCV MCH MCHC RDW Plt Count MPV Neut % (Auto) Lymph % (Auto) [place] % (Auto) Eos % (Auto) Baso % (Auto) Neut # (Auto) Lymph # (Auto) [place] # (Auto) Eos # (Auto) Baso # (Auto) PT INR APTT Sodium Potassium Chloride Carbon Dioxide Anion Gap BUN Creatinine Est GFR ( Amer) Est GFR (Non-Af Amer) POC Glucose (mg/dL) 127 H Random Glucose Calcium Total Bilirubin AST ALT Alkaline Phosphatase Troponin I Total Protein Albumin Globulin Albumin/Globulin Ratio TSH 3rd Generation - EKG Data EKG Interpreted by: Myself EKG shows normal: Sinus rhythm Assessment & Plan (1) SVT (supraventricular tachycardia) Assessment and Plan: discussed management with the patient. recommend increasing metoprolol to 100 mg BID will schedule ablation of SVT, can be scheduled as outpatient. Status: Acute (2) HTN (hypertension) Status: Acute
[2017-10-23 00:05] VITALS: RESP 18
[2017-10-23 06:06] LABS: BASO % 0.5 % (0.0-2.0); EOS # 0.1 K/uL (0.0-0.7); EOS % 1.7 % (0.0-4.0); HEMOGLOBIN 15.4 g/dL (12.0-18.0); LYMPH # 1.6 K/uL (1.0-4.3); LYMPH % 30.2 % (20.0-40.0); MEAN CELL VOLUME 86.8 fl (80.0-94.0); MEAN CORPUSCULAR HGB CONC 33.4 g/dL (33.0-37.0); MONO # 0.7 K/uL (0.0-0.8); MONO % 13.7 % (0.0-10.0); NEUT # 2.9 K/uL (1.8-7.0); NEUT % 53.9 % (50.0-75.0); NRBC % 0.1 % (0.0-0.0); RBC 5.33 Mil/uL (4.40-5.90); RED CELL DISTRIBUTION WIDTH 14.1 % (11.5-14.5); WHITE BLOOD COUNT 5.4 K/uL (4.8-10.8)
[2017-10-23 06:39] LABS: ALB/GLOB RATIO 1.2 (1.0-2.1); ALBUMIN 4.2 g/dL (3.5-5.0); ALT/SGPT 38 U/L (21-72); AST/SGOT 33 U/L (17-59); BLOOD UREA NITROGEN 13 mg/dl (9-20); CALCIUM 9.1 mg/dL (8.4-10.2); GFR AFRICAN-AMERICAN > 60; GFR NON-AFRICAN AMERICAN > 60
[2017-10-23 08:28] VITALS: BP 134/78; TEMP 98.2; O2SAT 98
--- NOTE | 2017-10-23 08:57 | CP.PCM.HP ---
History of Present Illness - History of Present Illness History of Present Illness: pt admitted after having run of svt (2nd occurance) broke w/ adenosine. no palpitions, dyspnea at present. c/o mild intermittent sharp cp. pt has already been cleared by cardio and this finding was discussed and ptremains cleared for dc. bw noted. echo 2 months ago. pt will require outpt ablasion Present on Admission - Present on Admission Any Indicators Present on Admission: Yes History of Uncontrolled Diabetes: Yes Review of Systems - Cardiovascular Cardiovascular: As Per HPI, Chest Pain, Palpitations Past Patient History - Past Medical History & Family History Past Medical History?: Yes - Past Social History Alcohol: None Drugs: Denies - CARDIAC Hx Cardia Arrhythmia: Yes Hx Hypercholesterolemia: Yes Hx Hypertension: Yes - PULMONARY Hx Respiratory Disorders: No - NEUROLOGICAL Hx Neurological Disorder: No - HEENT Hx HEENT Problems: No - RENAL Hx Chronic Kidney Disease: No - ENDOCRINE/METABOLIC Hx Endocrine Disorders: Yes Hx Diabetes Mellitus Type 2: Yes - HEMATOLOGICAL/ONCOLOGICAL Hx Human Immunodeficiency Virus (HIV): No - INTEGUMENTARY Hx Dermatological Problems: No - MUSCULOSKELETAL/RHEUMATOLOGICAL Hx Musculoskeletal Disorders: No Hx Falls: No - GASTROINTESTINAL Hx Gastrointestinal Disorders: No - GENITOURINARY/GYNECOLOGICAL Hx Genitourinary Disorders: No - PSYCHIATRIC Hx Anxiety: Yes Hx Depression: Yes - SURGICAL HISTORY Hx Surgeries: No - ANESTHESIA Hx Anesthesia: No Hx Anesthesia Reactions: No Hx Malignant Hyperthermia: No Meds Allergies/Adverse Reactions: Allergies Allergy/AdvReac Type Severity Reaction Status Date / Time No Known Allergies Allergy Verified 10/22/17 06:39 Physical Exam - Constitutional Appears: Well, Non-toxic, No Acute Distress - Head Exam Head Exam: ATRAUMATIC, NORMAL INSPECTION, NORMOCEPHALIC - Eye Exam Eye Exam: EOMI, Normal appearance, PERRL Pupil Exam: NORMAL ACCOMODATION, PERRL - ENT Exam ENT Exam: Mucous Membranes Moist, Normal Exam - Neck Exam Neck exam: Positive for: Normal Inspection - Respiratory Exam Respiratory Exam: Clear to Auscultation Bilateral - Cardiovascular Exam Cardiovascular Exam: REGULAR RHYTHM, RRR, +S1, +S2 - GI/Abdominal Exam GI & Abdominal Exam: Normal Bowel Sounds, Soft. absent: Tenderness - Extremities Exam Extremities exam: Positive for: full ROM, normal capillary refill, normal inspection, pedal pulses present - Back Exam Back exam: NORMAL INSPECTION - Neurological Exam Neurological exam: Alert, CN II-XII Intact, Normal Gait, Oriented x3, Reflexes Normal - Psychiatric Exam Psychiatric exam: Normal Affect, Normal Mood - Skin Skin Exam: Dry, Intact, Normal Color, Warm Results - Vital Signs Recent Vital Signs: Last Vital Signs Temp 98.2 F 10/23/17 08:27 Pulse 78 10/23/17 08:41 Resp 18 10/23/17 08:27 BP 134/78 10/23/17 08:41 Pulse Ox 98 10/23/17 08:27 - Labs Result Diagrams: 10/23/17 04:20 10/23/17 04:20 Labs: Laboratory Results - last 24 hr 10/22/17 10/22/17 10/22/17 12:02 15:48 16:41 WBC RBC Hgb Hct MCV MCH MCHC RDW Plt Count MPV Neut % (Auto) Lymph % (Auto) [place] % (Auto) Eos % (Auto) Baso % (Auto) Neut # (Auto) Lymph # (Auto) [place] # (Auto) Eos # (Auto) Baso # (Auto) Sodium Potassium Chloride Carbon Dioxide Anion Gap BUN Creatinine Est GFR ( Amer) Est GFR (Non-Af Amer) POC Glucose (mg/dL) 94 127 H Random Glucose Calcium Total Bilirubin AST ALT Alkaline Phosphatase Troponin I 0.0550 Total Protein Albumin Globulin Albumin/Globulin Ratio TSH 3rd Generation 1.94 10/22/17 10/23/17 10/23/17 21:15 04:20 04:20 WBC 5.4 RBC 5.33 Hgb 15.4 Hct 46.2 MCV 86.8 MCH 29.0 MCHC 33.4 RDW 14.1 Plt Count 198 MPV 9.0 Neut % (Auto) 53.9 Lymph % (Auto) 30.2 [place] % (Auto) 13.7 H Eos % (Auto) 1.7 Baso % (Auto) 0.5 Neut # (Auto) 2.9 Lymph # (Auto) 1.6 [place] # (Auto) 0.7 Eos # (Auto) 0.1 Baso # (Auto) 0.0 Sodium 143 Potassium 4.2 Chloride 108 H Carbon Dioxide 23 Anion Gap 16 BUN 13 Creatinine 0.9 Est GFR ( Amer) > 60 Est GFR (Non-Af Amer) > 60 POC Glucose (mg/dL) 101 Random Glucose 118 H Calcium 9.1 Total Bilirubin 1.0 AST 33 ALT 38 Alkaline Phosphatase 94 Troponin I Total Protein 7.8 Albumin 4.2 Globulin 3.6 Albumin/Globulin Ratio 1.2 TSH 3rd Generation 10/23/17 05:19 WBC RBC Hgb Hct MCV MCH MCHC RDW Plt Count MPV Neut % (Auto) Lymph % (Auto) [place] % (Auto) Eos % (Auto) Baso % (Auto) Neut # (Auto) Lymph # (Auto) [place] # (Auto) Eos # (Auto) Baso # (Auto) Sodium Potassium Chloride Carbon Dioxide Anion Gap BUN Creatinine Est GFR ( Amer) Est GFR (Non-Af Amer) POC Glucose (mg/dL) 120 H Random Glucose Calcium Total Bilirubin AST ALT Alkaline Phosphatase Troponin I Total Protein Albumin Globulin Albumin/Globulin Ratio TSH 3rd Generation Assessment & Plan (1) SVT (supraventricular tachycardia) Assessment and Plan: broke w/ adenosine, stable on tele, cleared by cardio for dc and outpt f/u and ablasion Status: Acute (2) DVT prophylaxis Assessment and Plan: scd and ae hose ambulation Status: Acute (3) HTN (hypertension) Assessment and Plan: cont home meds Status: Acute (4) Type 2 diabetes mellitus with hyperglycemia Assessment and Plan: fsbg, home meds, dietary Status: Acute Decision To Admit - Pt Status Changed To: Hospital Disposition Of: Observation - . Bed Request Type: Telemetry Admitting Physician: Harry Mathew
[2017-10-23 09:19] VITALS: PULSE 75
--- NOTE | 2017-10-24 11:30 | CP.PCM.DIS ---
Provider - Provider Date of Admission: 10/22/17 07:40 Attending physician: Harry Mathew MD Time Spent in preparation of Discharge (in minutes): 15 Diagnosis - Discharge Diagnosis (1) SVT (supraventricular tachycardia) Status: Acute (2) DVT prophylaxis Status: Acute (3) HTN (hypertension) Status: Acute (4) Type 2 diabetes mellitus with hyperglycemia Status: Acute Hospital Course - Lab Results Lab Results: Most Recent Lab Values WBC 5.4 K/uL (4.8-10.8) 10/23/17 04:20 RBC 5.33 Mil/uL (4.40-5.90) 10/23/17 04:20 Hgb 15.4 g/dL (12.0-18.0) 10/23/17 04:20 Hct 46.2 % (35.0-51.0) 10/23/17 04:20 MCV 86.8 fl (80.0-94.0) 10/23/17 04:20 MCH 29.0 pg (27.0-31.0) 10/23/17 04:20 MCHC 33.4 g/dL (33.0-37.0) 10/23/17 04:20 RDW 14.1 % (11.5-14.5) 10/23/17 04:20 Plt Count 198 K/uL (130-400) 10/23/17 04:20 MPV 9.0 fl (7.2-11.7) 10/23/17 04:20 Neut % (Auto) 53.9 % (50.0-75.0) 10/23/17 04:20 Lymph % (Auto) 30.2 % (20.0-40.0) 10/23/17 04:20 [place] % (Auto) 13.7 % (0.0-10.0) H 10/23/17 04:20 Eos % (Auto) 1.7 % (0.0-4.0) 10/23/17 04:20 Baso % (Auto) 0.5 % (0.0-2.0) 10/23/17 04:20 Neut # (Auto) 2.9 K/uL (1.8-7.0) 10/23/17 04:20 Lymph # (Auto) 1.6 K/uL (1.0-4.3) 10/23/17 04:20 [place] # (Auto) 0.7 K/uL (0.0-0.8) 10/23/17 04:20 Eos # (Auto) 0.1 K/uL (0.0-0.7) 10/23/17 04:20 Baso # (Auto) 0.0 K/uL (0.0-0.2) 10/23/17 04:20 PT 12.6 Seconds (9.8-13.1) 10/22/17 07:36 INR 1.1 (0.9-1.2) 10/22/17 07:36 APTT 32.2 Seconds (25.6-37.1) 10/22/17 07:36 Sodium 143 mmol/l (132-148) 10/23/17 04:20 Potassium 4.2 MMOL/L (3.6-5.0) 10/23/17 04:20 Chloride 108 mmol/L (98-107) H 10/23/17 04:20 Carbon Dioxide 23 mmol/L (22-30) 10/23/17 04:20 Anion Gap 16 (10-20) 10/23/17 04:20 BUN 13 mg/dl (9-20) 10/23/17 04:20 Creatinine 0.9 mg/dl (0.8-1.5) 10/23/17 04:20 Est GFR ( Amer) > 60 10/23/17 04:20 Est GFR (Non-Af Amer) > 60 10/23/17 04:20 POC Glucose (mg/dL) 120 mg/dL (65-110) H 10/23/17 05:19 Random Glucose 118 mg/dL (75-110) H 10/23/17 04:20 Calcium 9.1 mg/dL (8.4-10.2) 10/23/17 04:20 Total Bilirubin 1.0 mg/dl (0.2-1.3) 10/23/17 04:20 AST 33 U/L (17-59) 10/23/17 04:20 ALT 38 U/L (21-72) 10/23/17 04:20 Alkaline Phosphatase 94 U/L (38-126) 10/23/17 04:20 Troponin I 0.0550 ng/mL (0.00-0.120) 10/22/17 15:48 Total Protein 7.8 G/DL (6.3-8.2) 10/23/17 04:20 Albumin 4.2 g/dL (3.5-5.0) 10/23/17 04:20 Globulin 3.6 gm/dL (2.2-3.9) 10/23/17 04:20 Albumin/Globulin Ratio 1.2 (1.0-2.1) 10/23/17 04:20 TSH 3rd Generation 1.94 mIU/ML (0.46-4.68) 10/22/17 15:48 - Hospital Course Hospital Course: cardio adenosine in ER telel monitor, outpt ablasion Discharge Exam - Head Exam Head Exam: ATRAUMATIC, NORMAL INSPECTION, NORMOCEPHALIC Discharge Plan - Follow Up Plan Condition: FAIR Disposition: HOME/ ROUTINE Instructions: Supraventricular Tachycardia (SVT) Additional Instructions: cleared by cardio final dx- svt f/u rmg in am, rted prn, meds pe rmed rec. outpt cardio,s tress, ablasion Referrals: Ronaldo Wheeler MD [Staff Provider] -
== END 2017-10-23 09:51 | disposition home or self-care (01) ==
LOC: H.ER 06:23 → H.ERHOLD 07:40 → H.TEL 10:21
PROVIDERS: ADMIT Family Medicine; ATTEND Family Medicine
DX: I47.1 Supraventricular tachycardia (principal); I10 Essential (primary) hypertension; E78.00 Pure hypercholesterolemia, unspecified; E11.65 Type 2 diabetes mellitus with hyperglycemia; F32.9 Major depressive disorder, single episode, unspecified; F41.9 Anxiety disorder, unspecified
CPT/HCPCS: 36415; 71045; 80053; 82948; 84443; 84484; 85025; 85610; 85730; 93005; 96361; 96374; 99285; G0378; J0153; J7030

== ENCOUNTER 2017-11-29 02:14 | Emergency (ER) | payer OTHER ==
[2017-11-29 02:14] VITALS: BMI 38.3
[2017-11-29 02:31] VITALS: TEMP 98.3
--- NOTE | 2017-11-29 02:43 | ED PDOC ---
HPI: Chest Pain Time Seen by Provider: 11/29/17 02:25 Chief Complaint (Nursing): Palpitations Chief Complaint (Provider): Palpitations History Per: Patient History/Exam Limitations: no limitations Onset/Duration Of Symptoms: Hrs (x3) Current Symptoms Are (Timing): Still Present Associated Symptoms: denies: Nausea, Diaphoresis Additional Complaint(s): Sarabjit Milner is a 52 year old male with a past medical history of diabetes and SVT who is presenting to the ED for evaluation of palpitations, onset 3 hours ago. Patient states that he is preoccupied and unable to sleep. He reports that his brother in law, at 58 years old, recently . Patient states that he feels anxious but denies any nausea, vomiting, or diaphoresis. He does state that this episode is not similar to past experiences with SVT. PMD: David Padilla Past Medical History Reviewed: Historical Data, Nursing Documentation, Vital Signs Vital Signs: Last Vital Signs Temp 98.3 F 11/29/17 02:23 Pulse 82 11/29/17 02:23 Resp 18 11/29/17 02:23 BP 166/92 H 11/29/17 02:23 Pulse Ox 98 11/29/17 02:45 - Medical History PMH: Anxiety, Cardia Arrhythmia, Depression, Diabetes, HTN, Hypercholesterolemia Denies: HIV, Chronic Kidney Disease Comment Only: Cardiac Aneurysm (SVT) Other PMH: SVT - Surgical History Surgical History: No Surg Hx - Family History Family History: States: Unknown Family Hx - Social History Current smoker - smoking cessation education provided: No Alcohol: None Drugs: Denies - Home Medications Home Medications: Ambulatory Orders Medication Instructions Recorded Clonazepam [Klonopin] 0.5 mg PO TID 09/11/15 Lamotrigine [Lamictal] 25 mg PO HS 09/11/15 Lisinopril/Hydrochlorothiazide 1 tab PO DAILY 09/11/15 [Lisinopril-Hctz 20-25 mg Tab] Simvastatin [Zocor] 40 mg PO HS 09/11/15 Sitagliptin Phos/Metformin HCl 1 each PO BID 09/11/15 [Janumet 50-1,000 mg Tablet] Aspirin [Aspirin Chewable] 81 mg PO DAILY #0 chew 09/12/15 Metoprolol Tartrate [Lopressor] 50 mg PO DAILY 08/13/17 - Allergies Allergies/Adverse Reactions: Allergies Allergy/AdvReac Type Severity Reaction Status Date / Time No Known Allergies Allergy Verified 10/22/17 06:39 Review of Systems ROS Statement: Except As Marked, All Systems Reviewed And Found Negative Constitutional: Negative for: Sweats Cardiovascular: Positive for: Palpitations Gastrointestinal: Negative for: Nausea, Vomiting Physical Exam - Reviewed Nursing Documentation Reviewed: Yes Vital Signs Reviewed: Yes - Physical Exam Appears: Positive for: Non-toxic, No Acute Distress Head Exam: Positive for: ATRAUMATIC, NORMAL INSPECTION, NORMOCEPHALIC Skin: Positive for: Normal Color, Warm, DRY Eye Exam: Positive for: EOMI, Normal appearance, PERRL ENT: Positive for: Normal ENT Inspection Neck: Positive for: Normal, Painless ROM Cardiovascular/Chest: Positive for: Regular Rate, Rhythm. Negative for: Murmur Respiratory: Positive for: Normal Breath Sounds. Negative for: Respiratory Distress Gastrointestinal/Abdominal: Positive for: Normal Exam, Soft. Negative for: Tenderness Back: Positive for: Normal Inspection. Negative for: L CVA Tenderness, R CVA Tenderness, Vertebral Tenderness Extremity: Positive for: Normal ROM. Negative for: Deformity, Swelling Neurologic/Psych: Positive for: Alert, Oriented. Negative for: Motor/Sensory Deficits - Laboratory Results Result Diagrams: 11/29/17 02:44 11/29/17 02:44 - ECG O2 Sat by Pulse Oximetry: 98 (RA) Pulse Ox Interpretation: Normal Medical Decision Making Medical Decision Making: Time: 2:43 Impression: 52 year old male with acute anxiety Plan: --EKG --CMP --Magnesium --Thyroid Stimulating Hormone --Troponin --CBC --Ativan 1 mg PO --Accucheck 4:45 Labs were reviewed with no clinically significant abnormalities. Patient reports significant improvement in symptoms. Upon provider evaluation patient is medically stable, and requires no further treatment in the ED at this time. Patient will be discharged home. Counseling was provided and all questions were answered regarding diagnosis and need for outpatient follow up. There is agreement to discharge plan. Return if symptoms persist or worsen. Scribe Attestation: Documented by Adeal Arguelles, acting as a scribe for Howard Brown MD. Provider Scribe Attestation: All medical record entries made by the Scribe were at my direction and personally dictated by me. I have reviewed the chart and agree that the record accurately reflects my personal performance of the history, physical exam, medical decision making, and the department course for this patient. I have also personally directed, reviewed, and agree with the discharge instructions and disposition. Disposition - Clinical Impression Clinical Impression: Anxiety - Patient ED Disposition Is Patient to be Admitted: No - Disposition Disposition: Routine/Home Disposition Time: 04:50 Condition: IMPROVED Instructions: Anxiety, Adult (DC) Forms: [employer] (Hungarian)
[2017-11-29 02:53] LABS: BASO % 0.5 % (0.0-2.0); EOS # 0.2 K/uL (0.0-0.7); EOS % 1.9 % (0.0-4.0); HEMOGLOBIN 15.3 g/dL (12.0-18.0); LYMPH # 2.3 K/uL (1.0-4.3); LYMPH % 26.5 % (20.0-40.0); MEAN CORPUSCULAR HEMOGLOBIN 29.6 pg (27.0-31.0); MEAN CORPUSCULAR HGB CONC 34.8 g/dL (33.0-37.0); MEAN PLATELET VOLUME 8.8 fl (7.2-11.7); MONO % 10.9 % (0.0-10.0); NEUT # 5.2 K/uL (1.8-7.0); NEUT % 60.2 % (50.0-75.0); NRBC % 0.2 % (0.0-0.0); RBC 5.16 Mil/uL (4.40-5.90); RED CELL DISTRIBUTION WIDTH 13.7 % (11.5-14.5); WHITE BLOOD COUNT 8.7 K/uL (4.8-10.8)
[2017-11-29 03:07] LABS: ALB/GLOB RATIO 1.3 (1.0-2.1); ALBUMIN 4.6 g/dL (3.5-5.0); ALT/SGPT 44 U/L (21-72); AST/SGOT 29 U/L (17-59); BLOOD UREA NITROGEN 13 mg/dl (9-20); CALCIUM 9.8 mg/dL (8.4-10.2); GFR NON-AFRICAN AMERICAN > 60
[2017-11-29 05:13] VITALS: BP 159/89; PULSE 78; RESP 16; O2SAT 99
--- NOTE | 2017-11-29 09:06 | CARD ---
APPROVED REPORT Date of service: 11/29/2017 EKG Measurement Heart [id number] <Conclusion> Normal sinus rhythm Possible Left atrial enlargement Left ventricular hypertrophy Anteroseptal infarct, age undetermined Abnormal ECG
== END 2017-11-29 04:18 | disposition home or self-care (01) ==
LOC: H.ER 02:14
DX: F41.9 Anxiety disorder, unspecified (principal); R20.2 Paresthesia of skin; E11.9 Type 2 diabetes mellitus without complications; I47.1 Supraventricular tachycardia; E78.00 Pure hypercholesterolemia, unspecified; F32.9 Major depressive disorder, single episode, unspecified; I10 Essential (primary) hypertension; I25.3 Aneurysm of heart; Z79.82 Long term (current) use of aspirin

== ENCOUNTER 2018-05-20 18:57 | Emergency (ER) | payer OTHER ==
[2018-05-20 18:57] VITALS: BMI 38.3
--- NOTE | 2018-05-20 19:32 | ED PDOC ---
HPI: Chest Pain Time Seen by Provider: 05/20/18 19:19 Chief Complaint (Nursing): Palpitations Chief Complaint (Provider): Palpitations History Per: Patient History/Exam Limitations: no limitations Onset/Duration Of Symptoms: Hrs (x2) Current Symptoms Are (Timing): Still Present Additional Complaint(s): 53 y/o male with a PMHx of HTN and SVT presents to the ED for evaluation of sudden onset of palpitations at 5 o'clock this afternoon (two hours prior to arrival). Patient reports of having similar episodes several times in the past for SVT. Patient denies any chest pain, shortness of breath and syncope. PMD: [place] Contract Forester: Dr. Wheeler Past Medical History Reviewed: Historical Data, Nursing Documentation, Vital Signs - Medical History PMH: Anxiety, Cardia Arrhythmia, Depression, Diabetes, HTN, Hypercholesterolemia Denies: HIV, Chronic Kidney Disease Comment Only: Cardiac Aneurysm (SVT) - Surgical History Surgical History: No Surg Hx - Family History Family History: States: Unknown Family Hx - Home Medications Home Medications: Ambulatory Orders Medication Instructions Recorded RX: Clonazepam [Klonopin] 0.5 mg PO TID 09/11/15 RX: Lamotrigine [Lamictal] 25 mg PO HS 09/11/15 RX: Lisinopril/Hydrochlorothiazide 1 tab PO DAILY 09/11/15 [Lisinopril-Hctz 20-25 mg Tab] RX: Simvastatin [Zocor] 40 mg PO HS 09/11/15 RX: Sitagliptin Phos/Metformin HCl 1 each PO BID 09/11/15 [Janumet 50-1,000 mg Tablet] RX: Aspirin [Aspirin Chewable] 81 mg PO DAILY #0 chew 09/12/15 RX: Metoprolol Tartrate [Lopressor] 50 mg PO DAILY #30 tab 05/20/18 - Allergies Allergies/Adverse Reactions: Allergies Allergy/AdvReac Type Severity Reaction Status Date / Time No Known Allergies Allergy Verified 05/20/18 19:15 Review of Systems ROS Statement: Except As Marked, All Systems Reviewed And Found Negative Cardiovascular: Positive for: Palpitations. Negative for: Chest Pain Respiratory: Negative for: Shortness of Breath Neurological: Negative for: Other (syncope) Physical Exam - Reviewed Nursing Documentation Reviewed: Yes Vital Signs Reviewed: Yes - Physical Exam Appears: Negative for: Uncomfortable (comfortable ) Head Exam: Positive for: ATRAUMATIC, NORMOCEPHALIC Skin: Positive for: Normal Color, Warm, Dry Eye Exam: Positive for: Normal appearance, EOMI, PERRL Neck: Positive for: Normal, Painless ROM Cardiovascular/Chest: Positive for: Tachycardia (with regular rhythm). Negative for: Murmur Respiratory: Positive for: Normal Breath Sounds. Negative for: Respiratory Distress Gastrointestinal/Abdominal: Positive for: Normal Exam, Soft. Negative for: Tenderness Extremity: Positive for: Normal ROM. Negative for: Deformity, Swelling Neurologic/Psych: Positive for: Alert, Oriented. Negative for: Motor/Sensory Deficits - Laboratory Results Result Diagrams: 05/20/18 19:23 05/20/18 19:23 - ECG ECG: Positive for: Interpreted By Me (@1903), Viewed By Me ECG Rhythm: Positive for: SVT (tachy), Nonspecific Changes (in all leads) - Progress Re-evaluation Time: 23:42 Condition: Re-examined, Improved - Critical Care Total Time (In Min): 30 Documented Critical Care: Time excludes all time spent performint seperately billable procedures Medical Decision Making Medical Decision Making: Time: 1903 Impression: Tachycardia and palpitations Differentials include but not limited to paroxysmal SVT and AFib with RVR. Rule out ACS Plan: -- Initial EKG viewed and interpreted by me. Patient brought directly into room. -- Peripheral antecubital IV placed. According to ACLS guideline, will administer 6 mg of Adenosine while patient on cardiac cath lab technologist. Conversion of SVT successful. Time: 1913 -- Repeat EKG interpreted and viewed by me showing sinus rhythm with 1st degree AV block, LVH with normal QRS and nonspecific changes with a rate of 121. Time: 1947 -- Upon re-evaluation, patient states he feels much better with no palpitations and chest pain at this time. Patient symptoms have significantly improved. Scribe Attestation: Documented by Andree Lilly, acting as a scribe for Jj Deshpande MD. Provider Scribe Attestation: All medical record entries made by the Scribe were at my direction and personally dictated by me. I have reviewed the chart and agree that the record accurately reflects my personal performance of the history, physical exam, medical decision making, and the department course for this patient. I have also personally directed, reviewed, and agree with the discharge instructions and disposition. Disposition - Clinical Impression Clinical Impression: SVT (supraventricular tachycardia), Hyperglycemia - Patient ED Disposition Is Patient to be Admitted: No Doctor Will See Patient In The: Office Counseled Patient/Family Regarding: Studies Performed, Diagnosis, Need For Followup - Disposition Referrals: David Padilla MD [Family Provider] - Ronaldo Wheeler MD [Staff Provider] - Disposition: Routine/Home Disposition Time: 23:43 Condition: GOOD Additional Instructions: MAHOGANY MENDOZA, thank you for letting us take care of you today. Your provider was Jj Deshpande MD and you were treated for PALPITATIONS,SOB. The emergency medical care you received today was directed at your acute symptoms. If you were prescribed any medication, please fill it and take as directed. It may take several days for your symptoms to resolve. Return to the Emergency Department if your symptoms worsen, do not improve, or if you have any other problems. Please contact your doctor or call one of the physicians/clinics you have been referred to that are listed on the Patient Visit Information form that is included in your discharge packet. Bring any paperwork you were given at discharge with you along with any medications you are taking to your follow up visit. Our treatment cannot replace ongoing medical care by a primary care provider outside of the emergency department. Thank you for allowing the [facility] team to be part of your care today. If you had an X-Ray or CT scan: A Radiologist will review the ED reading if any change in treatment is needed we will contact you. If you had a blood, urine, or wound culture: It will take several days for the results, if any change in treatment is needed we will contact you. If you had an STI test: It will take 48 hours for the results. Please call after 1 week if you have not heard back. Prescriptions: RX: Metoprolol Tartrate [Lopressor] 50 mg PO DAILY #30 tab Instructions: Supraventricular Tachycardia (SVT), Hyperglycemia, Adult (DC) Forms: [employer] (Sinhala)
[2018-05-20 19:34] LABS: BASO # 0.1 K/uL (0.0-0.2); BASO % 0.7 % (0.0-2.0); EOS # 0.2 K/uL (0.0-0.7); EOS % 2.4 % (0.0-4.0); HEMOGLOBIN 15.4 g/dL (12.0-18.0); LYMPH # 2.9 K/uL (1.0-4.3); LYMPH % 36.2 % (20.0-40.0); MEAN CELL VOLUME 88.5 fl (80.0-94.0); MEAN CORPUSCULAR HEMOGLOBIN 29.8 pg (27.0-31.0); MEAN CORPUSCULAR HGB CONC 33.6 g/dL (33.0-37.0); MONO # 1.1 K/uL (0.0-0.8); MONO % 14.3 % (0.0-10.0); NEUT # 3.7 K/uL (1.8-7.0); NEUT % 46.4 % (50.0-75.0); NRBC % 0.1 % (0.0-0.0); RBC 5.18 Mil/uL (4.40-5.90); RED CELL DISTRIBUTION WIDTH 13.6 % (11.5-14.5)
[2018-05-20 19:55] LABS: B-TYPE NATRIURETIC PEPTIDE 38.5 pg/ml (0-900)
[2018-05-20 20:03] LABS: BLOOD UREA NITROGEN 17 mg/dl (9-20); CALCIUM 9.5 mg/dL (8.4-10.2); GFR NON-AFRICAN AMERICAN > 60
[2018-05-20] MEDS ORDERED: Sodium Chloride 0.9% 1,000 ML IV STA (20:16)
[2018-05-20] MEDS ORDERED: Potassium Chloride 20 mEq ER Tab PO ONE (20:16)
[2018-05-20 21:31] LABS: BARBITURATES, UR NEGATIVE (NEGATIVE); BENZODIAZEPINES, UR NEGATIVE (NEGATIVE); OPIATES, UR NEGATIVE (NEGATIVE); PHENCYCLIDINE, UR NEGATIVE (NEGATIVE)
[2018-05-20 23:47] VITALS: RESP 12; TEMP 98.9; O2SAT 95
[2018-05-21 06:00] VITALS: BP 131/70; PULSE 184
--- NOTE | 2018-05-21 11:56 | CARD ---
APPROVED REPORT Date of service: 05/20/2018 EKG Measurement Heart [id number] <Conclusion> Supraventricular tachycardia Marked ST abnormality, possible inferior subendocardial injury Marked ST abnormality, possible anterolateral subendocardial injury Abnormal ECG
--- NOTE | 2018-05-21 15:03 | RAD ---
Date of service: 05/20/2018 HISTORY: Palpitations COMPARISON: 10/22/2017 FINDINGS: LUNGS: No active pulmonary disease. PLEURA: No significant pleural effusion identified, no pneumothorax apparent. CARDIOVASCULAR: No atherosclerotic calcification present Normal. OSSEOUS STRUCTURES: No significant abnormalities. VISUALIZED UPPER ABDOMEN: Normal. OTHER FINDINGS: None. IMPRESSION: No active disease. No significant interval change compared to the prior examination(s).
== END 2018-05-20 23:50 | disposition home or self-care (01) ==
LOC: H.ER 18:57
DX: I47.1 Supraventricular tachycardia (principal); E11.65 Type 2 diabetes mellitus with hyperglycemia; E78.00 Pure hypercholesterolemia, unspecified; I10 Essential (primary) hypertension; Z79.82 Long term (current) use of aspirin; Z79.899 Other long term (current) drug therapy; I44.0 Atrioventricular block, first degree
CPT/HCPCS: 71045; 80048; 80324; 80345; 80346; 80349; 80353; 80358; 80361; 82948; 83880; 83992; 84484; 85025; 93005; 96374; 99284; J0153; J7030

== ENCOUNTER 2018-06-13 21:39 | Observation (INO) | payer OTHER ==
[2018-06-13 21:47] VITALS: BMI 33.4
--- NOTE | 2018-06-13 22:15 | ED PDOC ---
HPI: Chest Pain Time Seen by Provider: 06/13/18 21:59 Chief Complaint (Nursing): Palpitations Chief Complaint (Provider): Palpitations and chest pain History Per: Patient History/Exam Limitations: no limitations Onset/Duration Of Symptoms: Mins (x15) Current Symptoms Are (Timing): Still Present Additional Complaint(s): 53 year old male, with a past medical history of SVT, diabetes, and HTN, presents to the ED complaining of palpitations and shortness of breath 15 minutes prior to arrival. Patient reports he had a similar episode a few days ago and was admitted for SVT. Patient is scheduled for an ablation in July. Denies chest pain or dizziness. PMD: none provided Past Medical History Reviewed: Historical Data, Nursing Documentation, Vital Signs Vital Signs: Last Vital Signs Temp Pulse 80 06/13/18 22:12 Resp 17 06/13/18 22:12 BP 126/67 06/13/18 22:12 Pulse Ox 100 06/13/18 22:12 - Medical History PMH: Anxiety, Cardia Arrhythmia, Depression, Diabetes, HTN, Hypercholesterolemia Denies: HIV, Chronic Kidney Disease Comment Only: Cardiac Aneurysm (SVT) Other PMH: SVT - Family History Family History: States: Unknown Family Hx - Home Medications Home Medications: Ambulatory Orders Medication Instructions Recorded Clonazepam [Klonopin] 0.5 mg PO TID 09/11/15 Lisinopril/Hydrochlorothiazide 1 tab PO DAILY 09/11/15 [Lisinopril-Hctz 20-25 mg Tab] Simvastatin [Zocor] 40 mg PO HS 09/11/15 Sitagliptin Phos/Metformin HCl 1 each PO BID 09/11/15 [Janumet 50-1,000 mg Tablet] Aspirin [Aspirin Chewable] 81 mg PO DAILY #0 chew 09/12/15 Metoprolol Tartrate [Lopressor] 150 mg PO DAILY 06/13/18 - Allergies Allergies/Adverse Reactions: Allergies Allergy/AdvReac Type Severity Reaction Status Date / Time No Known Allergies Allergy Verified 06/13/18 21:47 Review of Systems ROS Statement: Except As Marked, All Systems Reviewed And Found Negative Cardiovascular: Positive for: Palpitations. Negative for: Chest Pain Respiratory: Positive for: Shortness of Breath Neurological: Negative for: Dizziness Physical Exam - Reviewed Nursing Documentation Reviewed: Yes Vital Signs Reviewed: Yes - Physical Exam Appears: Positive for: No Acute Distress Head Exam: Positive for: ATRAUMATIC Skin: Positive for: Normal Color, Warm, Dry Eye Exam: Positive for: Normal appearance Neck: Positive for: Normal, Painless ROM Cardiovascular/Chest: Positive for: Regular Rate, Rhythm (Regular rhythm), Tachycardia Respiratory: Positive for: Normal Breath Sounds. Negative for: Wheezing, Respiratory Distress Gastrointestinal/Abdominal: Positive for: Normal Exam, Soft. Negative for: Tenderness Extremity: Negative for: Swelling Neurological/Psych: Positive for: Awake, Alert, Oriented (x3). Negative for: Motor/Sensory Deficits (or focal deficits) - ECG ECG Rhythm: Positive for: SVT Rate: 180 O2 Sat by Pulse Oximetry: 100 (RA) Pulse Ox Interpretation: Normal Medical Decision Making Medical Decision Making: Initial Impression: Palpitations and SOB Initial Plan: --ECG --CMP --Troponin stat --CBC --Chest X-ray --Adenosine 6mg IV --Sodium chloride 100mL IV --Cardizem 25mg IV Patient was treated with Adenosine 6mg which initially aborted SVT into sinus rhythm but patient had an immediate recurrence of SVT. Patient was then treated with 12mg of Adenosine which once again aborted SVT into sinus rhythm but patient immediately resumed SVT at 180. He was then treated with Cardizem 15mg IV bolus and placed on Cardizem drip. Patient has remained in sinus rhythm at 85. Blood pressure prior to Cardizem bolus was 139/103 and after Cardizem bolus was 126/74. As patient has required rebolusing of Adenosine with return to SVT and subsequent need for Cardizem drip, will place patient in observation and have hand assembler for puller over assess patient. Scribe Attestation: Documented by Rell Kendrick acting as a scribe for Rajendra Ruano MD. Provider Scribe Attestation: All medical record entries made by the Scribe were at my direction and personally dictated by me. I have reviewed the chart and agree that the record accurately reflects my personal performance of the history, physical exam, medical decision making, and the department course for this patient. I have also personally directed, reviewed, and agree with the discharge instructions and disposition. Disposition - Clinical Impression Clinical Impression: SVT (supraventricular tachycardia) - Patient ED Disposition Is Patient to be Admitted: Yes - Disposition Disposition Time: 22:24 Condition: FAIR Forms: [employer] (Welsh) - Pt Status Changed To: Hospital Disposition Of: Observation - POA Present On Arrival: None
[2018-06-13 22:24] LABS: BASO # 0.1 K/uL (0.0-0.2); BASO % 0.8 % (0.0-2.0); EOS # 0.2 K/uL (0.0-0.7); EOS % 2.2 % (0.0-4.0); HEMOGLOBIN 15.4 g/dL (12.0-18.0); LYMPH # 3.3 K/uL (1.0-4.3); LYMPH % 39.7 % (20.0-40.0); MEAN CELL VOLUME 89.6 fl (80.0-94.0); MEAN CORPUSCULAR HEMOGLOBIN 29.4 pg (27.0-31.0); MEAN CORPUSCULAR HGB CONC 32.8 g/dL (33.0-37.0); MEAN PLATELET VOLUME 9.5 fl (7.2-11.7); MONO % 11.8 % (0.0-10.0); NEUT # 3.7 K/uL (1.8-7.0); NEUT % 45.5 % (50.0-75.0); NRBC % 0.1 % (0.0-0.0); RBC 5.24 Mil/uL (4.40-5.90); RED CELL DISTRIBUTION WIDTH 14.1 % (11.5-14.5); WHITE BLOOD COUNT 8.2 K/uL (4.8-10.8)
[2018-06-13 22:52] LABS: ALB/GLOB RATIO 1.1 (1.0-2.1); ALBUMIN 4.4 g/dL (3.5-5.0); ALT/SGPT 36 U/L (21-72); AST/SGOT 54 U/L (17-59); BLOOD UREA NITROGEN 12 mg/dl (9-20); CALCIUM 9.2 mg/dL (8.4-10.2); GFR NON-AFRICAN AMERICAN > 60
[2018-06-14 06:12] LABS: BASO % 0.8 % (0.0-2.0); EOS # 0.1 K/uL (0.0-0.7); HEMOGLOBIN 14.7 g/dL (12.0-18.0); LYMPH # 1.3 K/uL (1.0-4.3); LYMPH % 22.8 % (20.0-40.0); MEAN CELL VOLUME 88.3 fl (80.0-94.0); MEAN CORPUSCULAR HEMOGLOBIN 29.8 pg (27.0-31.0); MEAN CORPUSCULAR HGB CONC 33.7 g/dL (33.0-37.0); MEAN PLATELET VOLUME 8.9 fl (7.2-11.7); MONO # 0.5 K/uL (0.0-0.8); MONO % 9.4 % (0.0-10.0); NEUT # 3.8 K/uL (1.8-7.0); NRBC % 0.1 % (0.0-0.0); RBC 4.94 Mil/uL (4.40-5.90); RED CELL DISTRIBUTION WIDTH 13.7 % (11.5-14.5); WHITE BLOOD COUNT 5.8 K/uL (4.8-10.8)
[2018-06-14 06:33] LABS: ALB/GLOB RATIO 1.2 (1.0-2.1); ALT/SGPT 60 U/L (21-72); AST/SGOT 37 U/L (17-59); BLOOD UREA NITROGEN 11 mg/dl (9-20); CALCIUM 9.2 mg/dL (8.4-10.2); GFR NON-AFRICAN AMERICAN > 60
[2018-06-14 06:43] VITALS: RESP 18
--- NOTE | 2018-06-14 08:26 | RAD ---
Date of service: 06/13/2018 HISTORY: cough COMPARISON: Portable chest 06/06/2018. FINDINGS: LUNGS: No active pulmonary disease. PLEURA: No significant pleural effusion identified, no pneumothorax apparent. CARDIOVASCULAR: No aortic atherosclerotic calcification present. Normal cardiac size. No pulmonary vascular congestion. OSSEOUS STRUCTURES: No significant abnormalities. VISUALIZED UPPER ABDOMEN: Normal. OTHER FINDINGS: None. IMPRESSION: No interval acute cardiopulmonary disease appreciated.
[2018-06-14 11:47] VITALS: BP 118/76; PULSE 72; TEMP 98.2; O2SAT 93
--- NOTE | 2018-06-14 18:47 | CARD ---
APPROVED REPORT Date of service: 06/13/2018 EKG Measurement Heart [id number] <Conclusion> Sinus tachycardia ST & T wave abnormality, consider lateral ischemia Abnormal ECG
--- NOTE | 2018-06-17 16:00 | CP.PCM.HP ---
History of Present Illness - History of Present Illness History of Present Illness: h/p from 06/14/18 admitted for recurrent svt. no f/c, n/v/d. no cp at present. nsr on monitor, for xfer to [facility] for ablasion todaycase d/c w/ dr campuzano. Present on Admission - Present on Admission Any Indicators Present on Admission: Yes History of Uncontrolled Diabetes: Yes Review of Systems - Cardiovascular Cardiovascular: As Per HPI, Chest Pain, Irregular Heart Rhythm, Rapid Heart Rate Past Patient History - Past Medical History & Family History Past Medical History?: Yes - Past Social History Smoking Status: Never Smoked - CARDIAC Hx Cardiac Disorders: Yes Hx Hypercholesterolemia: Yes Hx Hypertension: Yes - PULMONARY Hx Respiratory Disorders: No - NEUROLOGICAL Hx Neurological Disorder: No - HEENT Hx HEENT Problems: No - RENAL Hx Chronic Kidney Disease: No - ENDOCRINE/METABOLIC Hx Endocrine Disorders: Yes Hx Diabetes Mellitus Type 2: Yes - HEMATOLOGICAL/ONCOLOGICAL Hx Blood Disorders: No Hx AIDS: No Hx Human Immunodeficiency Virus (HIV): No - INTEGUMENTARY Hx Dermatological Problems: No - MUSCULOSKELETAL/RHEUMATOLOGICAL Hx Musculoskeletal Disorders: No Hx Falls: No - GASTROINTESTINAL Hx Gastrointestinal Disorders: No - GENITOURINARY/GYNECOLOGICAL Hx Genitourinary Disorders: No - PSYCHIATRIC Hx Psychophysiologic Disorder: Yes Hx Anxiety: Yes Hx Depression: Yes Hx Substance Use: No - SURGICAL HISTORY Hx Surgeries: No - ANESTHESIA Hx Anesthesia: Yes Hx Anesthesia Reactions: No Hx Malignant Hyperthermia: No Has any member of the family had a problem w/ anesthesia?: No Meds Allergies/Adverse Reactions: Allergies Allergy/AdvReac Type Severity Reaction Status Date / Time No Known Allergies Allergy Verified 06/13/18 21:47 Physical Exam - Constitutional Appears: Well, Non-toxic, No Acute Distress - Head Exam Head Exam: ATRAUMATIC, NORMAL INSPECTION, NORMOCEPHALIC - Eye Exam Eye Exam: EOMI, Normal appearance, PERRL Pupil Exam: NORMAL ACCOMODATION, PERRL - ENT Exam ENT Exam: Mucous Membranes Moist, Normal Exam - Neck Exam Neck exam: Positive for: Normal Inspection - Respiratory Exam Respiratory Exam: Clear to Auscultation Bilateral, NORMAL BREATHING PATTERN - Cardiovascular Exam Cardiovascular Exam: REGULAR RHYTHM, RRR, +S1, +S2 - GI/Abdominal Exam GI & Abdominal Exam: Normal Bowel Sounds, Soft. absent: Tenderness - Extremities Exam Extremities exam: Positive for: full ROM, normal capillary refill, normal inspection, pedal pulses present - Back Exam Back exam: NORMAL INSPECTION - Neurological Exam Neurological exam: Alert, CN II-XII Intact, Normal Gait, Oriented x3, Reflexes Normal - Psychiatric Exam Psychiatric exam: Normal Affect, Normal Mood - Skin Skin Exam: Dry, Intact, Normal Color, Warm Results - Vital Signs Recent Vital Signs: Last Vital Signs Temp 98.2 F 06/14/18 11:46 Pulse 72 06/14/18 11:46 Resp 18 06/14/18 11:46 BP 118/76 06/14/18 11:46 Pulse Ox 93 L 06/14/18 11:46 - Labs Result Diagrams: 06/14/18 06:00 06/14/18 05:20 Assessment & Plan (1) Chest pain Assessment and Plan: trops cardio Status: Acute (2) DVT prophylaxis Assessment and Plan: scd nad ae hose ambulaiton Status: Acute (3) SVT (supraventricular tachycardia) Assessment and Plan: adenosine in er cardio ep nbimc for ablasion Status: Acute Decision To Admit - Pt Status Changed To: Hospital Disposition Of: Observation - . Bed Request Type: Telemetry Admitting Physician: Harry Mathew
--- NOTE | 2018-06-17 16:02 | CP.PCM.DIS ---
Provider - Provider Date of Admission: 06/13/18 22:17 Attending physician: Harry Mathew MD Consults: 06/13/18 22:18 Physician Consult Stat Comment: Consulting Provider: Ronaldo Wheeler Consulting Physician: Ronaldo Wheeler Reason for Consult: SVT 06/13/18 22:34 Cardiology Consult Stat Comment: Consulting Provider: Ronaldo Wheeler Consulting Physician: Ronaldo Wheeler Reason for Consult: svt Time Spent in preparation of Discharge (in minutes): 15 Diagnosis - Discharge Diagnosis (1) Chest pain Status: Acute (2) DVT prophylaxis Status: Acute (3) SVT (supraventricular tachycardia) Status: Acute Hospital Course - Lab Results Lab Results: Most Recent Lab Values WBC 5.8 K/uL (4.8-10.8) 06/14/18 06:00 RBC 4.94 Mil/uL (4.40-5.90) 06/14/18 06:00 Hgb 14.7 g/dL (12.0-18.0) 06/14/18 06:00 Hct 43.6 % (35.0-51.0) 06/14/18 06:00 MCV 88.3 fl (80.0-94.0) 06/14/18 06:00 MCH 29.8 pg (27.0-31.0) 06/14/18 06:00 MCHC 33.7 g/dL (33.0-37.0) 06/14/18 06:00 RDW 13.7 % (11.5-14.5) 06/14/18 06:00 Plt Count 206 K/uL (130-400) 06/14/18 06:00 MPV 8.9 fl (7.2-11.7) 06/14/18 06:00 Neut % (Auto) 66.0 % (50.0-75.0) 06/14/18 06:00 Lymph % (Auto) 22.8 % (20.0-40.0) 06/14/18 06:00 [place] % (Auto) 9.4 % (0.0-10.0) 06/14/18 06:00 Eos % (Auto) 1.0 % (0.0-4.0) 06/14/18 06:00 Baso % (Auto) 0.8 % (0.0-2.0) 06/14/18 06:00 Neut # (Auto) 3.8 K/uL (1.8-7.0) 06/14/18 06:00 Lymph # (Auto) 1.3 K/uL (1.0-4.3) 06/14/18 06:00 [place] # (Auto) 0.5 K/uL (0.0-0.8) 06/14/18 06:00 Eos # (Auto) 0.1 K/uL (0.0-0.7) 06/14/18 06:00 Baso # (Auto) 0.0 K/uL (0.0-0.2) 06/14/18 06:00 Sodium 140 mmol/l (132-148) 06/14/18 05:20 Potassium 4.0 MMOL/L (3.6-5.0) 06/14/18 05:20 Chloride 105 mmol/L (98-107) 06/14/18 05:20 Carbon Dioxide 26 mmol/L (22-30) 06/14/18 05:20 Anion Gap 13 (10-20) 06/14/18 05:20 BUN 11 mg/dl (9-20) 06/14/18 05:20 Creatinine 0.8 mg/dl (0.8-1.5) 06/14/18 05:20 Est GFR ( Amer) > 60 06/14/18 05:20 Est GFR (Non-Af Amer) > 60 06/14/18 05:20 POC Glucose (mg/dL) 137 mg/dL (65-110) H 06/14/18 10:43 Random Glucose 159 mg/dL (75-110) H 06/14/18 05:20 Calcium 9.2 mg/dL (8.4-10.2) 06/14/18 05:20 Total Bilirubin 0.9 mg/dl (0.2-1.3) 06/14/18 05:20 AST 37 U/L (17-59) 06/14/18 05:20 ALT 60 U/L (21-72) 06/14/18 05:20 Alkaline Phosphatase 88 U/L (38-126) 06/14/18 05:20 Troponin I 0.0200 ng/mL (0.00-0.120) 06/13/18 22:20 Total Protein 7.4 G/DL (6.3-8.2) 06/14/18 05:20 Albumin 4.0 g/dL (3.5-5.0) 06/14/18 05:20 Globulin 3.4 gm/dL (2.2-3.9) 06/14/18 05:20 Albumin/Globulin Ratio 1.2 (1.0-2.1) 06/14/18 05:20 - Hospital Course Hospital Course: adenosine in er, cario/ep xfer to [facility] for ablasion Discharge Exam - Head Exam Head Exam: ATRAUMATIC, NORMAL INSPECTION, NORMOCEPHALIC Discharge Plan - Follow Up Plan Condition: FAIR Disposition: HOME/ ROUTINE Additional Instructions: final dx-svt, cp [facility] for ablasion
== END 2018-06-14 13:19 | disposition home or self-care (01) ==
LOC: H.ER 21:39 → H.ERHOLD 22:17 → H.TEL 06-14 06:13
PROVIDERS: ADMIT Family Medicine; ATTEND Family Medicine
DX: I47.1 Supraventricular tachycardia (principal); E11.9 Type 2 diabetes mellitus without complications; I10 Essential (primary) hypertension; E78.00 Pure hypercholesterolemia, unspecified; Z79.82 Long term (current) use of aspirin; F41.9 Anxiety disorder, unspecified; F32.9 Major depressive disorder, single episode, unspecified; Z79.84 Long term (current) use of oral hypoglycemic drugs
CPT/HCPCS: 71045; 80053; 82948; 84484; 85025; 93005; 96374; 96375; 99285; G0378; J0153